=== PATIENT | female | born 1950 | race African-American/Black ===

== ENCOUNTER 2016-10-23 17:59 | Inpatient (IN) ==
[2016-10-23] MEDS ORDERED: ONDANSETRON 4 MG/2 ML VIAL IV STA (19:20)
[2016-10-23] MEDS ORDERED: HYDROmorphone 2 MG/1 ML VIAL IV STA (19:21)
[2016-10-23] MEDS ORDERED: ONDANSETRON 4 MG/2 ML VIAL ONE (19:22)
[2016-10-23] MEDS ORDERED: HYDROmorphone 2 MG/1 ML VIAL ONE (19:22)
--- NOTE | 2016-10-23 19:24 | Emergency Department Note ---
Deep Tiwari Mantricia, am scribing for, and in the presence of, Jennifer Arevalo DO 19:17. IMickey Debra, DO, personally performed the services described in this documentation, ascribed by Yajaira Adame in my presence, and it is both accurate and complete 919 . Arrival - Arrival Chief Complaint: Abdominal / Flank Pain Stated Complaint: STOMACH PAIN ED Nursing Triage Note: abd pain that started this morning. reports is nauseated denies vomiting or diarrhea. denies uti s/s Mode of Arrival: Ambulatory Limitations: No Limitations Source: Patient - History of Present Illness HPI Narrative: Pt is a 66 y/o black female arriving to ED by EMS with c/o abdominal pain that onset early this morning. Pt vaguely states that the pain began lightly this morning and has progressed over her entire stomach since then; however, she reports that she is able to eat. She confirms nausea but denies vomiting and diarrhea. She states that no one around her has been ill. Pt has a PSHx of a hysterectomy. She reports no other complaints to ED. Onset (ago): hour(s) Consistency: constant Severity: mild Allergies/Adverse Reactions: Allergies Allergy/AdvReac Type Severity Reaction Status Date / Time Tetracyclines AdvReac Unknown/Unable Verified 02/24/16 22:31 to obtain Home Medications: Home Medications Medication Instructions Recorded Confirmed Type Colesevelam [Welchol] 1,875 mg PO BID W/MEALS 02/25/16 10/23/16 History Estrogens(Conj) Tab [Premarin Tab] 0.625 mg PO DAILY 02/25/16 10/23/16 History Metoprolol Succinate 25 mg PO DAILY 02/25/16 10/23/16 History [place] 3 Acid Ethyl Esters [Lovaza] 2 gm PO BID 02/25/16 10/23/16 History Potassium Chloride [Klor-Con 10] 20 meq PO BID 02/25/16 10/23/16 History Ramipril [Altace] 5 mg PO DAILY 02/25/16 10/23/16 History Triamterene/Hctz 37.5-25 Tab 2 tablet PO DAILY 02/25/16 10/23/16 History [Maxzide 37.5-25] Omeprazole [Prilosec] 20 mg PO DAILY 10/23/16 10/23/16 History Review of System - Review of System 12 point system: reviewed and no additional remarkable complaints except as stated - Review of System Constitutional: Absent: chills, diaphoresis, fever Eyes: Absent: discharge, pain Head/Ears/Nose/Throat: Absent: earache, epistaxis Respiratory: Absent: cough, respiratory distress, wheezing Cardiovascular: Absent: chest pain, palpitations Gastrointestinal: Present: abdominal pain (all over), nausea. Absent: vomiting , diarrhea Genitourinary female: Absent: abnormal menses, dysuria Musculoskeletal: Absent: arm pain, back pain, leg pain, neck pain Skin: Absent: rash, lesions Neurological: Absent: headache, weakness Psychiatric: Absent: anxiety, depression Medical,Surgical,& Family Hx - Medical History Cardio: History of: Hypertension Gastrointestinal: History of: Polyps - Surgical History Abdominal Surgeries: Surgical HX of: Colonoscopy (4 years ago) Patient denies: Abdominal Surgery - Social History Smoking Status: Never smoker Exam Vital Signs: Vital Signs Temperature 97.5 F L 10/23/16 18:05 Pulse Rate 51 L 10/23/16 18:05 Respiratory Rate 18 10/23/16 18:05 Blood Pressure 186/68 10/23/16 18:05 O2 Sat by Pulse Oximetry 100 10/23/16 18:05 - General General appearance: alert, in no apparent distress - Head Head exam: Present: atraumatic, normocephalic, normal inspection - Eye Eye exam: Present: normal appearance, PERRL, EOMI - ENT ENT exam: Present: normal exam, normal oropharynx, mucous membranes moist, TM's normal bilaterally, normal external ear exam - Neck Neck exam: Present: normal inspection, full ROM, trachea midline. Absent: tenderness - Chest Chest inspection: Present: normal inspection, symmetric chest wall rise. Absent : tenderness - Respiratory Respiratory exam: Present: normal lung sounds bilaterally - Cardiovascular Cardiovascular exam: Present: regular rate, normal rhythm, normal heart sounds - Abdominal Exam Abdominal exam: Present: soft, tenderness (diffusely ), normal bowel sounds. Absent: distention, guarding, rebound - Extremities Exam Extremities exam: Present: normal inspection, full ROM, normal capillary refill. Absent: tenderness, pedal edema - Back Exam Back exam: Present: normal inspection, full ROM. Absent: tenderness - Neurological Exam Neurological exam: Present: alert, oriented X3, CN II-XII intact, normal gait, reflexes normal - Psychiatric Psychiatric exam: Present: normal affect, normal mood - Skin Skin exam: Present: warm, dry, intact, normal color Course Course Narrative: spoke with DR Ghosh who will admit pt Results - Labs CBC & BMP: 10/23/16 19:02 10/23/16 19:02 Lab Results: I have reviewed the patients labs - EKG EKG results: interpreted by JULY LUJAN - Diagnostic Findings Procedure: CT Abdomen and Pelvis: report reviewed by me (nonspecific enteritis, crohns ??) Disposition Clinical Impression: Enteritis, Bradycardia Case discussed with: patient Disposition: Still a Patient Condition: Stable Time of Disposition: 21:24
[2016-10-23 20:18] LABS: Basophils % 0.3 % (0.0-0.8); Eosinophils # 0.2 10*3/uL (0.0-0.87); Eosinophils % 2.2 % (0.00-10.9); Hematocrit 44.7 VOL% (35.7-47.0); Hemoglobin 15.3 GM/DL (12.0-16.0); Immature Granulocytes % 0.4 %; Immature Granulocytes Absolute 0.04 #; Lymphocytes # 1.8 10*3/uL (1.4-4.0); Mean Corpuscular HGB Conc 34.2 GM/DL (32-36); Mean Corpuscular Hemoglobin 26 PG (27-34); Mean Corpuscular Volume 76.1 FL (87-102); Mean Platelet Volume 10.2 FL (9.6-12.0); Monocytes # 0.7 10*3/uL (0.11-0.8); Monocytes % 7.3 % (1.7-12.7); Neutrophils # 6.4 10*3/uL (1.4-7.4); Neutrophils % 69.8 % (38.7-73.9); Platelet Count 273 T/CUMM (130-400); Red Blood Count 5.87 MC/CUMM (3.8-5.5); Red Cell Distribution Width 13.7 % (9.3-17.3); White Blood Count 9.2 T/CUMM (4-12)
[2016-10-23 20:32] LABS: Alanine Aminotransferase 18 U/L (13-56); Albumin 3.9 G/DL (3.4-5.0); Alkaline Phosphatase 71 U/L (45-117); Aspartate Amino Transferase 17 U/L (0-37); Bilirubin,Total < 0.39 MG/DL (0.2-1.0); Blood Urea Nitrogen 20 MG/DL (7-18); Calcium 8.9 MG/DL (8.5-10.1); Glucose 101 MG/DL (74-106); Osmolality,Calculated 279.5 MOS/KG (273-304); Potassium 4.1 MMOL/L (3.5-5.1); Sodium 139 MMOL/L (136-145); Troponin I Only < 0.015 NG/ML (0.00-0.045)
[2016-10-23 20:33] LABS: Apearance,Urine CLEAR (Clear); Bilirubin,Urine Negative (Negative); Blood, Urine Negative (Negative); Glucose,Urine (UA) Negative (Negative); Ketones,Urine Negative (Negative); Nitrite,Urine Negative (Negative); Protein,Urine Negative; RBC,Urine 3 /HPF (0-4); Urine Color Straw (Yellow); Urine Specific Gravity 1.009 (1.001-1.035); Urine Urobilinogen < 2.0 EU/DL (0.2-1.0); WBC,Urine <1 /HPF (0-6)
--- NOTE | 2016-10-23 21:12 | CT Report ---
History: Nausea. Stomach pain Date: 10/23/2016 Study: CT abdomen with IV contrast Comparison exam: September 22, 2016 Technique: Spiral CT sections were obtained from the lung bases to the iliac crests following 80 mL Omnipaque [address] exam was performed using one or more of the following dose reduction techniques: Automated exposure control, adjustment of the mA and/or kV according to patient size, or use of iterative reconstruction technique. There is some mild dependent atelectasis in the lower lungs. There is no gross pleural or pericardial effusion. The liver, spleen, pancreas, adrenal glands, bile ducts, fluid-filled gallbladder, and kidneys are generally unremarkable in appearance. There is no aortic aneurysm. There is nonspecific diffuse jejunal wall thickening in the left mid to upper abdomen without evidence to suggest alli bowel obstruction. Consider nonspecific enteritis, Crohn's disease. There is no lymphadenopathy by short axis diameter criteria. There is mild lumbar spondylosis. Impression: Nonspecific diffuse wall thickening of the jejunum without alli bowel obstruction. Consider nonspecific enteritis and Crohn's disease. There is no focal mass to suggest neoplasm. There is no gross hyperdense opacity in the wall to suggest bowel wall hemorrhage. The superior mesenteric artery is patent. There is no significant abnormality otherwise PROCEDURE INTERPRETED AT [facility] DEPARTMENT OF RADIOLOGY Final Report Signed by: Dr. Deneen Guevara
[2016-10-23] MEDS ORDERED: ONDANSETRON 4 MG/2 ML VIAL IV PRN (21:26)
[2016-10-23] MEDS ORDERED: HYDROmorphone 2 MG TABLET PO PRN (21:26)
--- NOTE | 2016-10-23 22:11 | XRay Report ---
History: Shortness of breath Date: 10/23/2016 Study: Chest x-ray AP portable Comparison exam: June 03, 2014 There is borderline cardiomegaly. There is no mediastinal mass. Shallow breath. The pulmonary vasculature is not engorged. There is no gross pleural effusion. The lungs are generally clear for shallow breath. There is mild to moderate thoracic spondylosis. Impression: Shallow breath. No definite evidence of acute cardiopulmonary process PROCEDURE INTERPRETED AT [facility] DEPARTMENT OF RADIOLOGY Final Report Signed by: Dr. Deneen Guevara
[2016-10-24 03:21] LABS: Basophils % 0.1 % (0.0-0.8); Eosinophils % 0.5 % (0.00-10.9); Hematocrit 39.6 VOL% (35.7-47.0); Hemoglobin 13.3 GM/DL (12.0-16.0); Immature Granulocytes % 0.3 %; Immature Granulocytes Absolute 0.02 #; Lymphocytes # 1.2 10*3/uL (1.4-4.0); Lymphocytes % 15.4 % (21.3-54.2); Mean Corpuscular HGB Conc 33.6 GM/DL (32-36); Mean Corpuscular Hemoglobin 26 PG (27-34); Mean Corpuscular Volume 76.4 FL (87-102); Mean Platelet Volume 10.1 FL (9.6-12.0); Monocytes # 0.5 10*3/uL (0.11-0.8); Monocytes % 6.8 % (1.7-12.7); Neutrophils # 6.1 10*3/uL (1.4-7.4); Neutrophils % 76.9 % (38.7-73.9); Platelet Count 249 T/CUMM (130-400); Red Blood Count 5.18 MC/CUMM (3.8-5.5); Red Cell Distribution Width 13.9 % (9.3-17.3); White Blood Count 7.9 T/CUMM (4-12)
[2016-10-24 03:54] LABS: Albumin 3.2 G/DL (3.4-5.0); Bilirubin,Total 0.6 MG/DL (0.2-1.0); Calcium 8.7 MG/DL (8.5-10.1); Osmolality,Calculated 283.3 MOS/KG (273-304); Potassium 4.2 MMOL/L (3.5-5.1); Risk Ratio 1.8; Total Protein 6.1 G/DL (6.4-8.3); VLDL CHOLESTEROL 13.8 MG/DL
--- NOTE | 2016-10-24 07:30 | Family Practice History&Phys ---
Assessment and Plan (1) Enteritis Status: Acute Assessment and plan: 10/24/2016: Stool culture will be ordered. Will check a sed rate and a CRP. Current Visit: No History of Present Illness Chief complaint: Abdominal pain History of present illness: Ms. Liu is a 66 year old female Patient is a 66-year-old black female who presents to the emergency room complaining of abdominal pain. Patient states this started yesterday and is to cramping, sharp discomfort across her lower abdomen. Patient states she had no nausea or vomiting or diarrhea but she did have loss of appetite. Patient states she has not seen any blood in her stool or mucus in her stool. Patient states she has never had anything like this before. She states she has not eaten anything that she considered possibly tainted. She has not perceived any fever or chills associated with this pain. She has had a fairly recent colonoscopy that showed no acute abnormality but she did have some diverticulosis. Home Medications Medication Instructions Recorded Confirmed Type Colesevelam [Welchol] 1,875 mg PO BID W/MEALS 02/25/16 10/24/16 History Estrogens(Conj) Tab [Premarin Tab] 0.625 mg PO DAILY 02/25/16 10/24/16 History Metoprolol Succinate 25 mg PO DAILY 02/25/16 10/24/16 History [place] 3 Acid Ethyl Esters [Lovaza] 2 gm PO BID 02/25/16 10/24/16 History Potassium Chloride [Klor-Con 10] 20 meq PO BID 02/25/16 10/24/16 History Ramipril [Altace] 5 mg PO DAILY 02/25/16 10/24/16 History Triamterene/Hctz 37.5-25 Tab 2 tablet PO DAILY 02/25/16 10/24/16 History [Maxzide 37.5-25] Omeprazole [Prilosec] 20 mg PO DAILY 10/23/16 10/24/16 History Allergies Allergy/AdvReac Type Severity Reaction Status Date / Time Tetracyclines AdvReac Unknown/Unable Verified 02/24/16 22:31 to obtain - Constitutional Constitutional: Present: chills, weakness. Absent: fever(s) - EENT Eyes: Absent: blurry vision, loss of vision Ears: Absent: decreased hearing, ear pain Nose, mouth and throat: Absent: nasal congestion, sinus pressure, sore throat - Cardiovascular Cardiovascular: Absent: chest pain at rest, dyspnea, dyspnea on exertion, lightheadedness, orthopnea, palpitations, PND - Respiratory Respiratory: Absent: cough, dyspnea, wheezing - Gastrointestinal Gastrointestinal: Present: abdominal pain, bloating, cramping. Absent: diarrhea , dyspepsia, dysphagia, melena, nausea, vomiting - Genitourinary Genitourinary: Absent: dysuria, hematuria, urinary frequency - Musculoskeletal Musculoskeletal: Absent: arthralgias, back pain - Neurological Neurological: Absent: abnormal gait, focal weakness, numbness, paresthesias - Psychiatric Psychiatric: Absent: anxiety, confusion - Endocrine Endocrine: Absent: fatigue, polydipsia, polyphagia - Hematologic/Lymphatic Hematologic/Lymphatic: Absent: easy bleeding, easy bruising Medical,Surgical,& Family Hx - Medical History Cardio: History of: Hypertension Gastrointestinal: History of: Polyps Comment Only: GI Problems (was told she had ulcers last visit here) - Surgical History Abdominal Surgeries: Surgical HX of: Colonoscopy (4 years ago) Patient denies: Abdominal Surgery Reproductive Surgeries: Surgical HX of;: Hysterectomy - Family History Family History: noncontributory - Social History Smoking Status: Never smoker Frequency of Alcohol Use: None Type of Drug Use: None Exam - Constitutional Vitals: Period Temp Pulse Resp BP Sys/Rodriguez Pulse Ox Last 24 Hr 97.5 F-98.0 F 47-58 18-20 106-187/59-81 100-100 Exam: General: Objective patient is a well-developed black female in no acute distress. She is able to give an excellent history HEENT: Pupils equal and reactive to light. Patent nares and airway Neck: No meningismus, adenopathy, thyromegaly. There are no auscultated carotid bruits. Cardiovascular: Regular rhythm. No murmurs or gallops Chest: Clear to auscultation without rales rhonchi wheezes. Abdomen: Bowel sounds were considered normally active. She does have some diffuse lower abdominal tenderness directly but there is no palpable masses, hepatosplenomegaly, rebound or guarding tenderness evident. Neuro: Cranial nerves intact and DTRs and strength symmetric in all extremities. Dermatologic: No evidence of abnormal lesions or masses. Musculoskeletal: There is no joint swelling or tenderness or deformity. Extremities: There is no calf swelling or tenderness. There is no edema. Results - Labs CBC & BMP: 10/24/16 02:18 10/24/16 02:18 Lab Results: I have reviewed the past 24 hour labs - Diagnostic Findings Procedure: CT Abdomen and Pelvis: report reviewed by me (Jejunal enteritis)
[2016-10-24] MEDS: ESTROGENS (CONJ) 0.625 MG TABLET PO SCH (09:15)
[2016-10-24] MEDS: RAMIPRIL 5 MG CAPSULE PO SCH (09:15)
[2016-10-24] MEDS: LEVOFLOXACIN INJ 500 MG in PREMIX 1 EACH IV SCH (09:15)
[2016-10-24] MEDS: DOCUSATE SODIUM 100 MG CAPSULE PO SCH ×2 (09:15→20:42)
[2016-10-24] MEDS: COLESEVELAM 625 MG TABLET PO SCH ×2 (09:16→17:09)
[2016-10-24] MEDS: SODIUM CHLORIDE 0.45% 1,000 ML IV SCH ×2 (09:16→16:16)
[2016-10-24] MEDS: PANTOPRAZOLE 40 MG TABLET PO SCH (09:17)
[2016-10-24] MEDS: OMEGA 3 ACID ETHYL ESTERS 1 GM CAPSULE PO SCH ×2 (09:18→20:43)
--- NOTE | 2016-10-24 09:57 | EKG Report ---
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
--- NOTE | 2016-10-24 09:57 | EKG Report ---
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
[2016-10-24] MEDS: ENOXAPARIN 40 MG/0.4 ML SYRINGE SUBCUT SCH (12:06)
[2016-10-25 07:23] LABS: Basophils % 0.4 % (0.0-0.8); Eosinophils # 0.2 10*3/uL (0.0-0.87); Hematocrit 35.9 VOL% (35.7-47.0); Hemoglobin 11.8 GM/DL (12.0-16.0); Immature Granulocytes % 0.2 %; Immature Granulocytes Absolute 0.01 #; Lymphocytes # 2.1 10*3/uL (1.4-4.0); Lymphocytes % 39.5 % (21.3-54.2); Mean Corpuscular HGB Conc 32.9 GM/DL (32-36); Mean Corpuscular Hemoglobin 26 PG (27-34); Mean Corpuscular Volume 77.5 FL (87-102); Mean Platelet Volume 10.1 FL (9.6-12.0); Monocytes # 0.5 10*3/uL (0.11-0.8); Monocytes % 8.8 % (1.7-12.7); Neutrophils # 2.5 10*3/uL (1.4-7.4); Neutrophils % 47.1 % (38.7-73.9); Platelet Count 215 T/CUMM (130-400); Red Blood Count 4.63 MC/CUMM (3.8-5.5); White Blood Count 5.2 T/CUMM (4-12)
--- NOTE | 2016-10-25 07:43 | Family Practice Progress Note ---
Family Practice - PN: Subj Interval history: Patient states she is feeling some better this morning she and she has not had any nausea, vomiting or vomiting. States she has not had any diarrhea. Patient states her pain is at least 50% improved. Exam (Progress Note) - Constitutional Vitals: Period Temp Pulse Resp BP Sys/Rodriguez Pulse Ox Last 24 Hr 97.6 F-98.7 F 50-60 16-20 105-128/50-61 98-100 Exam: Objective a well-developed white female no acute distress. She is able give good history. Cardiovascular: Heart rates regular without murmurs or gallops. Respiratory: Lungs clear to auscultation bilaterally. Abdomen: Patient still has some very minimal left lower quadrant tenderness directly but no rebound or guarding. Results - Labs CBC & BMP: 10/25/16 06:18 10/24/16 02:18 Lab Results: I have reviewed the past 24 hour labs Assessment and Plan (1) Enteritis Status: Acute Assessment and plan: 10/24/2016: Stool culture will be ordered. Will check a sed rate and a CRP. 10/25/2016: Inflammatory markers are negative. I suspect she may have a bit of diverticulitis. Current Visit: No
[2016-10-25] MEDS: COLESEVELAM 625 MG TABLET PO SCH ×2 (09:08→16:34)
[2016-10-25] MEDS: PANTOPRAZOLE 40 MG TABLET PO SCH (09:09)
[2016-10-25] MEDS: OMEGA 3 ACID ETHYL ESTERS 1 GM CAPSULE PO SCH ×2 (09:09→20:48)
[2016-10-25] MEDS: RAMIPRIL 5 MG CAPSULE PO SCH (09:09)
[2016-10-25] MEDS: DOCUSATE SODIUM 100 MG CAPSULE PO SCH ×2 (09:09→20:48)
[2016-10-25] MEDS: ENOXAPARIN 40 MG/0.4 ML SYRINGE SUBCUT SCH (09:10)
[2016-10-25] MEDS: ESTROGENS (CONJ) 0.625 MG TABLET PO SCH (09:12)
[2016-10-25] MEDS: LEVOFLOXACIN INJ 500 MG in PREMIX 1 EACH IV SCH (09:13)
[2016-10-25] MEDS: SODIUM CHLORIDE 0.45% 1,000 ML IV SCH ×5 (09:16→22:26)
[2016-10-26] MEDS: SODIUM CHLORIDE 0.45% 1,000 ML IV SCH (05:10)
--- NOTE | 2016-10-26 08:36 | Discharge Summary ---
Hospital Course - Hospital Course Hospital Course: Patient 66-year-old black female was admitted to the emergency room with severe abdominal pain. Patient was noted to have evidence of enteritis on her CT scan. Her laboratory work revealed essentially normal CBC. She is noted to have a normal sed rate and a negative CRP. I told her I suspect she may have had some mild diverticulitis. She did have a fairly recent colonoscopy that showed diverticulosis. Patient was admitted my services placed on IV antibiotics and had complete resolution of her discomfort. I told her if this pain returns she is going to need a small bowel series and further gastroenterologic evaluation. Diagnosis - Discharge Diagnosis (1) Enteritis Status: Acute Discharge Plan - Discharge Data Disposition: Disch To Home/Self Care Condition at Discharge: Stable Discharge Diet: advance to your usual diet Activity: resume usual activities as tolerated Hygiene: no restrictions Weight Bearing at Discharge: full weight bearing Driving: no restrictions Contact your physician if you experience:: fever over 101 - Discharge Medications New Estrogens(Conj) Tab [Premarin Tab] 0.625 mg PO DAILY tablet Ramipril [Altace] 5 mg PO DAILY capsule Colesevelam [Welchol] 1,875 mg PO BID W/MEALS tablet Levofloxacin Tab [Levaquin Tab] 500 mg PO DAILY #7 tablet Continue Triamterene/Hctz 37.5-25 Tab [Maxzide 37.5-25] 2 tablet PO DAILY Metoprolol Succinate 25 mg PO DAILY Potassium Chloride [Klor-Con 10] 20 meq PO BID Omeprazole [Prilosec] 20 mg PO DAILY Discontinued Colesevelam [Welchol] 1,875 mg PO BID W/MEALS Ramipril [Altace] 5 mg PO DAILY Estrogens(Conj) Tab [Premarin Tab] 0.625 mg PO DAILY [place] 3 Acid Ethyl Esters [Lovaza] 2 gm PO BID - Follow Up or Referral Follow Up: Rikki Ghosh MD [Primary Care Provider] - 1 Month - Forms/Instructions Exam - Constitutional Vitals: Period Temp Pulse Resp BP Sys/Rodriguez Pulse Ox Last 24 Hr 97.2 F-97.9 F 52-60 16-20 104-147/43-66 96-100 Exam: Objective a well-developed white female no acute distress. She is able give good history. Cardiovascular: Heart rates regular without murmurs or gallops. Respiratory: Lungs clear to auscultation bilaterally. Abdomen: Patient's abdominal tenderness has completely resolved. Discharge Results Procedures and tests throughout hospitalization: Pending Orders 10/24/16 07:27 Stool Culture Stat DS: Provider Date of admission: 10/23/16 21:26 Primary care physician: Rikki Ghosh MD Attending physician on admission: Rikki Ghosh MD Consults: 10/23/16 21:26 Consult to Case Mgmt/Social Srvs [CONS] Routine Reason for Case Mgmt/Social Srvs: Discharge Planning Discharging clinician: Rikki Ghosh MD Expected date of discharge: 10/26/16
[2016-10-26] MEDS: RAMIPRIL 5 MG CAPSULE PO SCH (08:51)
[2016-10-26] MEDS: COLESEVELAM 625 MG TABLET PO SCH (08:51)
[2016-10-26] MEDS: DOCUSATE SODIUM 100 MG CAPSULE PO SCH (08:52)
[2016-10-26] MEDS: LEVOFLOXACIN INJ 500 MG in PREMIX 1 EACH IV SCH (08:52)
[2016-10-26] MEDS: OMEGA 3 ACID ETHYL ESTERS 1 GM CAPSULE PO SCH (08:52)
[2016-10-26] MEDS: PANTOPRAZOLE 40 MG TABLET PO SCH (08:53)
[2016-10-26] MEDS: ESTROGENS (CONJ) 0.625 MG TABLET PO SCH (08:53)
[2016-10-26] MEDS: ENOXAPARIN 40 MG/0.4 ML SYRINGE SUBCUT SCH (08:53)
[2016-10-26 10:04] VITALS: BP 117/53
== END 2016-10-26 10:50 | disposition home or self-care (01) | DRG 392 ==
LOC: N.ED 17:59 → N.EDINP 21:26 → N.2E 22:52
PROVIDERS: ADMIT Family Medicine; ATTEND Family Medicine

== ENCOUNTER 2019-06-10 18:36 | Inpatient (IN) ==
[2019-06-10] MEDS ORDERED: MORPHINE 4 MG/1 ML VIAL IV STA (19:15)
[2019-06-10] MEDS ORDERED: ONDANSETRON 4 MG/2 ML VIAL IV STA (19:15)
[2019-06-10 19:32] LABS: Basophils % 0.2 % (0.0-0.8); Eosinophils # 0.2 10*3/uL (0.0-0.87); Eosinophils % 1.8 % (0.00-10.9); Hematocrit 46.3 VOL% (35.7-47.0); Hemoglobin 15.5 GM/DL (12.0-16.0); Immature Granulocytes % 0.3 %; Immature Granulocytes Absolute 0.04 #; Lymphocytes # 2.1 10*3/uL (1.4-4.0); Lymphocytes % 16.1 % (21.3-54.2); Mean Corpuscular HGB Conc 33.5 GM/DL (32-36); Mean Corpuscular Volume 77.6 FL (87-102); Mean Platelet Volume 9.4 FL (9.6-12.0); Monocytes % 6.9 % (1.7-12.7); Neutrophils % 74.7 % (38.7-73.9); Platelet Count 278 T/CUMM (130-400); Red Blood Count 5.97 MC/CUMM (3.8-5.5); Red Cell Distribution Width 13.6 % (9.3-17.3)
[2019-06-10 19:53] LABS: Albumin 3.4 G/DL (3.4-5.0); Bilirubin,Total 0.4 MG/DL (0.2-1.0); Calcium 8.9 MG/DL (8.5-10.1); Total Protein 7.1 G/DL (6.4-8.3)
[2019-06-10 20:15] LABS: Apearance,Urine Slightly Hazy (Clear); Bacteria,Urine Occasional /HPF (Few); Bilirubin,Urine Negative (Negative); Blood, Urine Small mg/dL (Negative); Glucose,Urine (UA) Negative (Negative); Hyaline Casts,Urine 24 /LPF (0-3); Ketones,Urine Negative (Negative); Mucus,Urine Occasional /LPF (Occasional); Nitrite,Urine Negative (Negative); Protein,Urine Negative; RBC,Urine 1 /HPF (0-4); Squamous Epithelial Cell,Urine Occasional /HPF (0-10); Urine Color Yellow (Yellow); Urine Specific Gravity 1.012 (1.001-1.035); Urine Urobilinogen < 2.0 EU/DL (0.2-1.0)
[2019-06-10] MEDS ORDERED: ONDANSETRON 4 MG/2 ML VIAL IV PRN (21:11)
[2019-06-10] MEDS ORDERED: ACETAMINOPHEN 325 MG TABLET PO PRN (21:11)
[2019-06-10] MEDS: MORPHINE 4 MG/1 ML VIAL IV PRN (22:50)
[2019-06-10] MEDS: CIPROFLOXACIN INJ 400 MG in PREMIX 1 EACH IV SCH (22:50)
[2019-06-11] MEDS: MORPHINE 4 MG/1 ML VIAL IV PRN ×2 (03:32→21:34)
[2019-06-11 04:28] LABS: Basophils % 0.2 % (0.0-0.8); Eosinophils # 0.1 10*3/uL (0.0-0.87); Eosinophils % 0.5 % (0.00-10.9); Hematocrit 44.2 VOL% (35.7-47.0); Hemoglobin 14.5 GM/DL (12.0-16.0); Immature Granulocytes % 0.3 %; Immature Granulocytes Absolute 0.03 #; Lymphocytes # 1.5 10*3/uL (1.4-4.0); Lymphocytes % 15.2 % (21.3-54.2); Mean Corpuscular HGB Conc 32.8 GM/DL (32-36); Mean Corpuscular Volume 77.5 FL (87-102); Mean Platelet Volume 9.5 FL (9.6-12.0); Monocytes % 7.3 % (1.7-12.7); Neutrophils % 76.5 % (38.7-73.9); Platelet Count 274 T/CUMM (130-400); Red Cell Distribution Width 13.4 % (9.3-17.3); White Blood Count 10.1 T/CUMM (4-12)
[2019-06-11 04:51] LABS: Albumin 3.3 G/DL (3.4-5.0); Bilirubin,Total 0.8 MG/DL (0.2-1.0); Calcium 8.6 MG/DL (8.5-10.1); Osmolality,Calculated 275.7 MOS/KG (273-304); Total Protein 6.8 G/DL (6.4-8.3)
[2019-06-11] MEDS ORDERED: PANTOPRAZOLE 40 MG VIAL IV SCH (09:00)
[2019-06-11] MEDS: CIPROFLOXACIN INJ 400 MG in PREMIX 1 EACH IV SCH ×2 (09:18→21:02)
[2019-06-11] MEDS: COLESEVELAM 625 MG TABLET PO SCH (17:12)
[2019-06-11] MEDS: POTASSIUM CHLORIDE 20 MEQ TABLET PO SCH (21:03)
[2019-06-11] MEDS: OMEGA 3 ACID ETHYL ESTERS 1 GM CAPSULE PO SCH (21:03)
[2019-06-11] MEDS: metroNIDAZOLE INJ 500 MG in PREMIX 1 EACH IV SCH (22:41)
[2019-06-12] MEDS: MORPHINE 4 MG/1 ML VIAL IV PRN ×2 (02:43→21:19)
[2019-06-12] MEDS: metroNIDAZOLE INJ 500 MG in PREMIX 1 EACH IV SCH ×3 (05:38→23:14)
[2019-06-12 06:32] LABS: Basophils % 0.2 % (0.0-0.8); Eosinophils # 0.3 10*3/uL (0.0-0.87); Eosinophils % 4.4 % (0.00-10.9); Hematocrit 38.3 VOL% (35.7-47.0); Hemoglobin 12.7 GM/DL (12.0-16.0); Immature Granulocytes % 0.2 %; Immature Granulocytes Absolute 0.01 #; Lymphocytes # 1.5 10*3/uL (1.4-4.0); Lymphocytes % 26.1 % (21.3-54.2); Mean Corpuscular HGB Conc 33.2 GM/DL (32-36); Mean Corpuscular Volume 78.5 FL (87-102); Mean Platelet Volume 9.3 FL (9.6-12.0); Monocytes % 11.2 % (1.7-12.7); Neutrophils % 57.9 % (38.7-73.9); Platelet Count 218 T/CUMM (130-400); Red Blood Count 4.88 MC/CUMM (3.8-5.5); Red Cell Distribution Width 13.5 % (9.3-17.3); White Blood Count 5.9 T/CUMM (4-12)
[2019-06-12 06:58] LABS: Albumin 3.2 G/DL (3.4-5.0); Bilirubin,Total 0.5 MG/DL (0.2-1.0); Calcium 8.8 MG/DL (8.5-10.1); Osmolality,Calculated 275.7 MOS/KG (273-304); Total Protein 6.3 G/DL (6.4-8.3)
[2019-06-12] MEDS: COLESEVELAM 625 MG TABLET PO SCH ×2 (08:11→17:13)
[2019-06-12] MEDS ORDERED: COLESEVELAM 625 MG TABLET PO ONE (08:30)
[2019-06-12] MEDS: ESTROGENS (CONJ) 0.625 MG TABLET PO SCH (09:02)
[2019-06-12] MEDS: POTASSIUM CHLORIDE 20 MEQ TABLET PO SCH ×2 (09:02→21:19)
[2019-06-12] MEDS: TRIAMTERENE/HCTZ 37.5-25 MG TABLET PO SCH (09:02)
[2019-06-12] MEDS: ENALAPRIL 10 MG TABLET PO SCH (09:03)
[2019-06-12] MEDS: PANTOPRAZOLE 40 MG TABLET PO SCH (09:03)
[2019-06-12] MEDS: OMEGA 3 ACID ETHYL ESTERS 1 GM CAPSULE PO SCH ×2 (09:03→21:19)
[2019-06-12] MEDS: CIPROFLOXACIN INJ 400 MG in PREMIX 1 EACH IV SCH ×2 (09:14→21:20)
[2019-06-13] MEDS: MORPHINE 4 MG/1 ML VIAL IV PRN (00:27)
[2019-06-13] MEDS: metroNIDAZOLE INJ 500 MG in PREMIX 1 EACH IV SCH ×3 (05:38→22:20)
[2019-06-13] MEDS ORDERED: propofoL 200 MG/20 ML VIAL IV ONE (10:00)
[2019-06-13] MEDS ORDERED: LIDOCAINE 2% 5 ML VIAL ONE (10:00)
[2019-06-13] MEDS: LACTATED RINGERS 1,000 ML IV SCH (10:04)
[2019-06-13] MEDS: COLESEVELAM 625 MG TABLET PO SCH ×2 (12:17→16:21)
[2019-06-13] MEDS: OMEGA 3 ACID ETHYL ESTERS 1 GM CAPSULE PO SCH ×2 (12:33→20:27)
[2019-06-13] MEDS: PANTOPRAZOLE 40 MG TABLET PO SCH (12:33)
[2019-06-13] MEDS: ENALAPRIL 10 MG TABLET PO SCH (12:33)
[2019-06-13] MEDS: ESTROGENS (CONJ) 0.625 MG TABLET PO SCH (12:34)
[2019-06-13] MEDS: TRIAMTERENE/HCTZ 37.5-25 MG TABLET PO SCH (12:34)
[2019-06-13] MEDS: POTASSIUM CHLORIDE 20 MEQ TABLET PO SCH ×2 (12:35→20:27)
[2019-06-13] MEDS: CIPROFLOXACIN INJ 400 MG in PREMIX 1 EACH IV SCH ×2 (12:36→21:15)
[2019-06-14] MEDS: MORPHINE 4 MG/1 ML VIAL IV PRN (01:06)
[2019-06-14] MEDS: metroNIDAZOLE INJ 500 MG in PREMIX 1 EACH IV SCH (05:01)
[2019-06-14 08:11] VITALS: BP 118/59
[2019-06-14] MEDS: OMEGA 3 ACID ETHYL ESTERS 1 GM CAPSULE PO SCH (08:41)
[2019-06-14] MEDS: POTASSIUM CHLORIDE 20 MEQ TABLET PO SCH (08:42)
[2019-06-14] MEDS: ESTROGENS (CONJ) 0.625 MG TABLET PO SCH (08:42)
[2019-06-14] MEDS: PANTOPRAZOLE 40 MG TABLET PO SCH (08:42)
[2019-06-14] MEDS: ENALAPRIL 10 MG TABLET PO SCH (08:42)
[2019-06-14] MEDS: TRIAMTERENE/HCTZ 37.5-25 MG TABLET PO SCH (08:42)
[2019-06-14] MEDS: COLESEVELAM 625 MG TABLET PO SCH (08:42)
[2019-06-14] MEDS: LACTATED RINGERS 1,000 ML IV SCH (08:45)
[2019-06-14] MEDS: CIPROFLOXACIN INJ 400 MG in PREMIX 1 EACH IV SCH (09:36)
[2019-06-19] MEDS ORDERED: MAGNESIUM CITRATE 300 ML BOTTLE PO ONE (11:14)
== END 2019-06-14 12:20 | disposition home or self-care (01) | DRG 392 ==
LOC: EDUNIT# → EDBD → N.ED 18:36 → N.EDINP 18:36 → N.TELES 22:19
PROVIDERS: ADMIT Family Medicine; ATTEND Family Medicine